=== PATIENT | male | born 2000 | race Caucasian/White ===

== ENCOUNTER 2025-07-22 11:50 | Emergency (ER) | payer MEDICAID ==
[~2025-07-22] VITALS: Ht 175.3 cm; Wt 81.0 kg
[2025-07-22 11:56] VITALS: O2SAT 99
[2025-07-22] MEDS ORDERED: INSU100I28 SQ (12:03)
[2025-07-22 13:02] LABS: BASOPHILS % 0.5 % (0.0-2.0); EOSINOPHILS % 0.5 % (0.0-5.0); HEMATOCRIT. 41.9 % (42.0-52.0); HEMOGLOBIN. 14.2 g/dL (14.0-18.0); LYMPHOCYTES % 21.9 % (20.0-50.0); MEAN PLATELET VOLUME 7.8 fl (7.4-10.4); MONOCYTES % 5.2 % (2.0-8.0); NEUTROPHILS % 71.9 % (40.0-76.0); PLATELET 217 x1000/uL (130-400); RED BLOOD CELL COUNT 4.60 mill/uL (4.7-6.1); RED CELL DISTRIBUTION WIDTH 13.1 % (11.6-14.6)
[2025-07-22 13:54] LABS: CREATININE 0.9 mg/dL (0.6-1.3)
[2025-07-22 13:55] LABS: UREA NITROGEN BLOOD 14 mg/dL (9-23)
[2025-07-22 13:56] LABS: ASPARTATE AMINOTRANSFERASE 14 IU/L (<34)
[2025-07-22 13:57] LABS: BILIRUBIN TOTAL 1.0 mg/dL (0.1-1.0); PROTEIN TOTAL 7.1 g/dL (6.0-8.3)
[2025-07-22 14:08] VITALS: BP 132/68; PULSE 74; RESP 20; TEMP 37.1; O2SAT 100
== END 2025-07-22 14:23 | disposition home or self-care (01) ==
LOC: ER 12:46
DX: E10.8 Type 1 diabetes mellitus with unspecified complications (principal); Z00.01 Encounter for general adult medical examination with abnormal findings; Z79.4 Long term (current) use of insulin
CPT/HCPCS: 36415; 80053; 82010; 82962; 85025; 99283